=== PATIENT | female | born 1975 | race Caucasian/White ===

== ENCOUNTER 2017-11-10 01:25 | Emergency (ER) | END 2017-11-10 04:33 | disposition home or self-care (01) ==

== ENCOUNTER 2017-12-06 13:19 | Emergency (ER) | END 2017-12-06 15:23 | disposition home or self-care (01) ==

== ENCOUNTER 2018-06-10 10:38 | Emergency (ER) | END 2018-06-10 12:43 | disposition home or self-care (01) ==